=== PATIENT | male | born 2000 | race Caucasian/White ===

== ENCOUNTER 2019-02-24 14:25 | Emergency (ER) | payer BC, SELFPAY ==
[2019-02-24 14:26] VITALS: BP 137/73; PULSE 99; RESP 16; TEMP 37; O2SAT 99; BMI 27.8
--- NOTE | 2019-02-24 14:48 | ED.VISSUMM ---
- ER Visit Summary Date of Service: 02/24/19 Chief Complaint: Chest wall laceration History of Present Illness: The patient is a 18 M with a laceration to the chest wall. It occurred about 13 hours ago. He fell onto a metal fence. He immediately cleaned it out last night and this morning. His last tetanus shot was 7 years ago. He would like this updated today. He sustained a laceration to the left chest wall. No bleeding. Denies any other symptoms. Physical Examination: Vital signs reviewed. He has a 2 cm horizontal laceration on the left chest wall. No bleeding. No erythema. Test Results: None performed Emergency Department Course and Treatment: The patient's tetanus is updated. I did put 3 loosely approximated sutures to approximate the wound edges. He will keep the area clean and dry. He is topical antibiotic cream. Will obtain 7 days for suture removal Treatment Plan: [] Disposition: Discharge Impression: Left chest wall laceration, 2 cm Laceration repaired by ED physician This note was generated with [employer] dictation software. It may contain incorrect words, spelling, and punctuation that were not noted in review of the chart prior to signing ED Disposition - Plan for ED Patient: Referrals: [facility] Doctor,Out of [Primary Care Provider] -
--- NOTE | 2019-02-24 14:50 | DCINST.ED_ITS ---
ED Disposition - Plan for ED Patient: Disposition: Home or Assisted Living Instructions: LACERATION, All Referrals: [facility] Doctor,Out of [Primary Care Provider] -
[2019-02-24] MEDS: Diphth,Pertuss(Acell),Tet Vac 0.5 ML Vial IM (14:57)
== END 2019-02-24 15:16 | disposition home or self-care (01) ==
LOC: ED 15:11
PROVIDERS: Emergency Provider Emergency Medicine
DX: S21.112A Laceration without foreign body of left front wall of thorax without penetration into thoracic cavity, initial encounter (principal); W26.8XXA Contact with other sharp object(s), not elsewhere classified, initial encounter; Z23 Encounter for immunization; Y93.89 Activity, other specified; Y92.89 Other specified places as the place of occurrence of the external cause; Y99.8 Other external cause status
CPT/HCPCS: 12001; 90471; 90715; 99283